=== PATIENT | male | born 1960 | race African-American/Black ===

== ENCOUNTER 2020-06-01 14:40 | Inpatient (IN) | payer OTHER ==
[~2020-06-01] VITALS: Ht 180.3 cm; Wt 66.2 kg
--- NOTE | 2020-06-01 14:49 | NUR ---
SOURAV GARRETT UNIT 44 FROM [facility], "VERBALLY ABUSIVE TO STAFF". TO ER BED 10, CHANGED TO HOSP GOWN, HOOKED TO BP CUFF AND MONITOR, PATIENT CALM AND COOPERATIVE. BREATHING EVEN AND UNLABORED. DR WHYTE AT BEDSIDE FOR NICKAL
[2020-06-01] MEDS ORDERED: IV NS 0.9% 1,000 ML BAG IV ONE (15:00)
--- NOTE | 2020-06-01 15:10 | NUR ---
PARKING METER INSTALLER AT BEDSIDE
[2020-06-01 15:23] LABS: BASOPHILS % (AUTO) 0.2 % (0.0-2.0); EOSINOPHILS % (AUTO) 0.3 % (0.0-6.0); HEMATOCRIT 40 % (39-51); HEMOGLOBIN 13.2 g/dL (13.5-17.5); LYMPHOCYTES # (AUTO) 1.1 /CMM (0.8-4.8); LYMPHOCYTES % (AUTO) 6.2 % (20.0-44.0); MEAN CORPUSCULAR HGB CONC 33 g/dl (31.0-36.0); MEAN CORPUSCULAR VOLUME 93 fL (80-96); MONOCYTES # (AUTO) 1.8 /CMM (0.1-1.30); MONOCYTES % (AUTO) 9.8 % (2.0-12.0); NEUTROPHILS # (AUTO) 15.1 /CMM (1.8-8.9); NEUTROPHILS % (AUTO) 83.5 % (43.0-81.0); PLATELET COUNT (AUTO) 248 /CMM (150-450); RED BLOOD CELL COUNT(AUTO) 4.28 MIL/uL (4.5-6.0); WHITE BLOOD COUNT (AUTO) 18.1 K/uL (4.3-11.0)
--- NOTE | 2020-06-01 15:29 | NUR ---
RAPID COVID AND COVID PCR SWAB DONE AND SENT TO LAB
[2020-06-01] MEDS ORDERED: ACET-868 PO (15:32)
[2020-06-01] MEDS ORDERED: MAGN400O6 PO (15:32)
[2020-06-01] MEDS ORDERED: CHOL100040 PO (15:32)
[2020-06-01] MEDS ORDERED: DEXA4TAB PO (15:32)
[2020-06-01] MEDS ORDERED: DOCU-141 PO (15:32)
[2020-06-01] MEDS ORDERED: ZINC1CAP2 PO (15:32)
[2020-06-01] MEDS ORDERED: ACET-2605 PO (15:32)
[2020-06-01] MEDS ORDERED: ASCO-352 PO (15:32)
[2020-06-01] MEDS ORDERED: POLY15DR40 EACHEYE (15:32)
[2020-06-01] MEDS ORDERED: SENN-261 PO (15:32)
[2020-06-01] MEDS ORDERED: MULT-447 PO (15:32)
[2020-06-01] MEDS ORDERED: ATOR10TA PO (15:32)
[2020-06-01] MEDS ORDERED: TAMS-12 PO (15:32)
[2020-06-01] MEDS ORDERED: PANT40TA2 PO (15:32)
[2020-06-01] MEDS ORDERED: LISI-603 PO (15:32)
[2020-06-01] MEDS ORDERED: POLY17PO4 PO (15:32)
[2020-06-01] MEDS ORDERED: OXYC5TAB3 PO (15:32)
[2020-06-01] MEDS ORDERED: TYL2T PO (15:32)
[2020-06-01] MEDS ORDERED: AMLO10TA7 PO (15:32)
[2020-06-01] MEDS ORDERED: DICL100G16 TP (15:32)
[2020-06-01 15:43] LABS: ALCOHOL, BLOOD < 3 mg/dL (0-0); CALCIUM, SERUM 9.1 mg/dL (8.5-10.1); CARBON DIOXIDE 26 mmol/L (21-32); CHLORIDE 99 mmol/L (98-107); CREATININE 0.4 mg/dL (0.6-1.3); GLUCOSE 102 mg/dL (74-106); POTASSIUM 4.3 mmol/L (3.5-5.1); SODIUM SERUM 132 mmol/L (136-145); UREA NITROGEN, BLOOD 21 mg/dL (7-18)
[2020-06-01 15:46] LABS: SALICYLATE < 0.2 mg/dL (2.8-20.0)
--- NOTE | 2020-06-01 16:40 | NUR ---
URINE SAMPLE COLLECTED VIA STRAIGHT CATHETER, URINE SAMPLE SENT TO LAB
--- NOTE | 2020-06-01 16:55 | NUR ---
NEGATIVE FOR COVID PER LAB
--- NOTE | 2020-06-01 16:55 | NUR ---
COVID RESULT: NEGATIVE
[2020-06-01 16:56] LABS: APPEARANCE,URINE Clear (CLEAR); BILIRUBIN,URINE Negative (NEGATIVE); BLOOD, URINE Negative Ery/uL (NEGATIVE); COLOR,URINE Yellow (YELLOW); KETONES,URINE Trace (NEGATIVE); LEUKOCYTE ESTERASE ,URINE Negative (NEGATIVE); NITRITE, URINE Negative (NEGATIVE); PH,URINE 5.5 (5.0-8.0); PROTEIN,URINE Negative (NEGATIVE); UGLUCOSE Negative (NEGATIVE); UROBILINOGEN,URINE 0.2 EU/dL (0.2)
[2020-06-01 17:05] LABS: BACTERIA,URINE Few /HPF (None Seen); RBC,URINE 0-2 /HPF (0-2); SQUAMOUS EPITHELIAL CELL,UR Few /HPF (None Seen); URINE AMORPHOUS URATE Few /HPF (None Seen); WBC,URINE 0-2 /HPF (0-3)
[2020-06-01 17:33] LABS: THYROID STIMULATING HORMONE 1.294 uIU/mL (0.358-3.74)
[2020-06-01] MEDS ORDERED: ONDANSETRON HCL/PF 4 MG/2 ML VIAL IV ONE (19:00)
[2020-06-01] MEDS ORDERED: MORPHINE SULFATE INJ 2 MG/ML DISP.SYRIN IV ONE ×2 (19:00→21:00)
[2020-06-01] MEDS ORDERED: IV NS 0.9% 500 ML BAG IV ONE (19:00)
[2020-06-01] MEDS ORDERED: IOHEXOL-300 100 ML VIAL IV ONE (19:16)
[2020-06-01] MEDS ORDERED: IV NS 0.9% 0 ML IV ONE (19:17)
[2020-06-01] MEDS ORDERED: CT SWABBABLE VALVE TRANS SET 1 EA INFUS.SET MC ONE (19:17)
--- NOTE | 2020-06-01 19:17 | NUR ---
covid swab collected and sent to lab.
[2020-06-01] MEDS ORDERED: IV NS 0.9% 250 ML IV ONE (19:18)
--- NOTE | 2020-06-01 19:32 | NUR ---
PICKED UP BY FINANCIAL DIRECTOR FOR CT SCAN
--- NOTE | 2020-06-01 19:42 | NUR ---
PATIENT RETURNED FROM CT.
[2020-06-01] MEDS ORDERED: ONDANSETRON HCL/PF 4 MG/2 ML VIAL ONE ×2 (20:13→21:27)
[2020-06-01] MEDS ORDERED: MORPHINE SULFATE INJ 4 MG/ML DISP.SYRIN ONE ×2 (20:13→21:27)
[2020-06-01] MEDS ORDERED: DEXAMETHASONE SOD PHOSPHATE 10 MG/ML VIAL IV ONE (21:00)
--- NOTE | 2020-06-01 21:08 | NUR ---
PATIENT TAKEN TO CT
--- NOTE | 2020-06-01 21:15 | NUR ---
BED ASSIGNMENT 201
[2020-06-01] MEDS ORDERED: DEXAMETHASONE SOD PHOSPHATE 10 MG/ML VIAL ONE (21:32)
--- NOTE | 2020-06-01 21:34 | NUR ---
DR. GARY LOAIZA PER DENIS BONE ORDER.
--- NOTE | 2020-06-01 21:57 | NUR ---
ER SPOKE TO DR. VEGA REGARDING PT ADMISSION.
--- NOTE | 2020-06-01 22:02 | NUR ---
REPORT CALLED TO CARTOON DESIGNERMARY HERRING. WILL TRANSPORT PT VIA ACLS PROTOCOL.
--- NOTE | 2020-06-01 22:22 | NUR ---
PATIENT BROUGHT TO ASSIGNED ROOM FOR JASON.
[2020-06-01] MEDS ORDERED: ONDANSETRON HCL/PF 4 MG/2 ML VIAL IVP PRN (23:00)
[2020-06-01] MEDS ORDERED: Z GUARD REMEDY 2 OZ OINT TP PRN (23:00)
[2020-06-01] MEDS ORDERED: MAGNESIUM HYDROXIDE 30 ML UDC PO PRN (23:00)
[2020-06-01] MEDS ORDERED: MAG HYDROX/AL HYDROX/SIMETH 30 ML UDC PO PRN (23:00)
[2020-06-01] MEDS ORDERED: ZOLPIDEM TARTRATE 5 MG TABLET PO PRN (23:00)
[2020-06-01] MEDS ORDERED: ACETAMINOPHEN 325 MG TABLET PO PRN (23:00)
[2020-06-01] MEDS: IV NS 0.9% 1,000 ML IV PRN (23:24)
[2020-06-02] MEDS ORDERED: MISCELLANEOUS MED 1 EA EA PO PRN
[2020-06-02] MEDS ORDERED: ACETAMINOPHEN 325 MG TABLET PO PRN ×3
[2020-06-02] MEDS ORDERED: MAGNESIUM HYDROXIDE 30 ML UDC PO PRN
[2020-06-02] MEDS: DEXAMETHASONE 4 MG TABLET PO SCH ×4 (01:07→17:07)
--- NOTE | 2020-06-02 01:15 | NUR ---
MS2/RN [facility]. PATIENT WAS AWAKE, ALERT, ORIENTED X4, CALM AND COMFORTABLE, NO C/O PAIN NO DISTRESS NOTED, VITAL SIGNS STABLE, AFEBRILE, ADMISSION DONE PER PROTOCOL, SKIN ASSESSMENT DONE, PHOTOS TAKEN, MADE COMFORTABLE IN BED, TAUGHT HOW TO USE THE CALL LIGHT AND PLACED IT AT BEDSIDE WITHIN REACH, PATIENT IS FALL RISK, FALL PRECAUTIONS PER PROTOCOL IMPLEMENT, WILL MONITOR.
[2020-06-02 01:43] VITALS: BP 121/72
[2020-06-02 06:48] LABS: BASOPHILS # (AUTO) 0.1 /CMM (0.0-0.2); BASOPHILS % (AUTO) 0.4 % (0.0-2.0); EOSINOPHILS % (AUTO) 0.1 % (0.0-6.0); HEMATOCRIT 39 % (39-51); HEMOGLOBIN 12.6 g/dL (13.5-17.5); LYMPHOCYTES # (AUTO) 0.5 /CMM (0.8-4.8); LYMPHOCYTES % (AUTO) 3.1 % (20.0-44.0); MEAN CORPUSCULAR HGB CONC 32 g/dl (31.0-36.0); MEAN CORPUSCULAR VOLUME 94 fL (80-96); MONOCYTES # (AUTO) 0.4 /CMM (0.1-1.30); MONOCYTES % (AUTO) 2.5 % (2.0-12.0); NEUTROPHILS # (AUTO) 15.4 /CMM (1.8-8.9); NEUTROPHILS % (AUTO) 93.9 % (43.0-81.0); PLATELET COUNT (AUTO) 233 /CMM (150-450); RED BLOOD CELL COUNT(AUTO) 4.19 MIL/uL (4.5-6.0); WHITE BLOOD COUNT (AUTO) 16.4 K/uL (4.3-11.0)
[2020-06-02] MEDS: HYDROCODONE/APAP 5/325MG TABLET PO PRN (06:53)
--- NOTE | 2020-06-02 07:03 | NUR ---
PHARMACY RESIDENT OPENING NOTE RECEIVED PT AWAKE IN BED AT THIS TIME. AOX4. PT ABLE TO VERBALIZE NEEDS. RESPIRATIONS ARE EVEN AND UNLABORED. NO SOB NOTED. NO C/O PAIN AT THIS TIME. NO S/S OF ANY ACUTE DISTRESS NOTED.IV ACCESS NOTED IN RAC G#18 , INTACT, PATENT, FLUSHING WELL. SAFETY PRECAUTION IN PLACE AND MAINTAINED AT ALL TIMES. BED IN LOWEST LOCKED POSITION, HOB ELEVATED, RAILS UP X 2, CALL LIGHT WITHIN REACH. WILL CONTINUE TO MONITOR
[2020-06-02] MEDS: PANTOPRAZOLE 40 MG TABLET.DR PO SCH (08:14)
[2020-06-02 08:30] VITALS: BP 148/85
[2020-06-02 08:38] LABS: CALCIUM, SERUM 9.1 mg/dL (8.5-10.1); CREATININE 0.4 mg/dL (0.6-1.3); MAGNESIUM 2.1 mg/dL (1.8-2.4); PHOSPHORUS 3.4 mg/dL (2.5-4.9); POTASSIUM 4.2 mmol/L (3.5-5.1)
[2020-06-02] MEDS: LISINOPRIL (20MG) 20 MG TABLET PO SCH (08:52)
[2020-06-02] MEDS: DOCUSATE SODIUM 100 MG CAPSULE PO SCH (08:52)
[2020-06-02] MEDS: ZINC SULFATE 220 MG CAPSULE PO SCH (08:52)
[2020-06-02] MEDS: TAMSULOSIN 0.4 MG CAP.SR.24H PO SCH (08:53)
[2020-06-02] MEDS: SENNOSIDES 8.6 MG TABLET PO SCH ×2 (08:53→17:00)
[2020-06-02] MEDS: POLYETHYLENE GLYCOL 3350 17 GM POWD.PACK PO SCH ×2 (08:53→17:00)
[2020-06-02] MEDS: AMLODIPINE BESYLATE 10 MG TABLET PO SCH (08:53)
--- NOTE | 2020-06-02 13:21 | NUR ---
PT VTE SCORE 4, RECEIVED ORDERS FROM DR VALENCIA FOR LOVENOX 40MG SQ DAILY. ORDERS READ BACK AND CARRIED OUT. WILL CONTINUE TO MONITOR
[2020-06-02] MEDS: IV NS 0.9% 1,000 ML IV PRN (13:26)
--- NOTE | 2020-06-02 14:50 | NUR ---
RECEIVED ORDERS FROM DR VALENCIA TO OBTAIN PT'S MEDICAL RECORDS FROM [facility] PER PATIENT'S REQUEST. ORDERS READ BACK. AUTHORIZATION TO RELEASE INFORMATION SIGNED BY PATIENT AND FAXED TO [facility] MEDICAL RECORDS AT THIS TIME. WILL CONTINUE WITH PLAN OF CARE
[2020-06-02] MEDS: ENOXAPARIN SODIUM 40 MG/0.4 ML DISP.SYRIN SQ SCH (14:51)
--- NOTE | 2020-06-02 15:30 | NUR ---
PT COVID -19 NEGATIVE. PT TRANSFERRED TO NON COVID UNIT ROOM 312-2 AT THIS TIME. PT TRANSPORTED BY WHEEL CHAIR WITH ALL PT'S BELONGINGS. WILL ENDORSE TO RECEIVING NURSE, MARY FIELD.
[2020-06-02 15:45] VITALS: BP 129/81
--- NOTE | 2020-06-02 15:45 | NUR ---
MS/RN NOTES Received patient via wheelchair accompanied by MARY Jacobson. Patient transferred to bed safely, A&O x 4. VS taken. Breathing even and non-labored on RA, no SOB noted. No respiratory or cardiac distress noted. Denies any pain and discomfort at the moment. IV access on R AC #18, patent and intact, and running 75 ml/hr of NS. No s/s of infiltration, infection, or bleeding on site. Sensation from all peripheral extremities intact. Bed locked to its lowest position, side rails x 2 up, bed alarm on, call light in reach. Instructed patient to use call light when in need of assistance. Will continue to monitor.
--- NOTE | 2020-06-02 16:11 | NUR ---
PT VTE SCORE OF 4, DVT PUMPS ORDERED. WILL F/U & CONTINUE TO MONITOR
--- NOTE | 2020-06-02 17:03 | NUR ---
MS/RN NOTE HELD DONOVAN, PATIENT HAD 2 BIG BOWEL MOVEMENTS TODAY. WILL CONTINUE TO MONITOR. Addendum: 06/02/20 at 1704 by RASHIDA ALLISON RN IN ADDITION TO ABOVE, PELON WAS HELD WELL.
--- NOTE | 2020-06-02 19:00 | NUR ---
MS/RN CLOSING NOTES Patient remains stable, resting in bed, A&O x 4. Denies any pain and discomfort throughout shift. Breathing even and non-labored on RA, no SOB noted. No respiratory or cardiac distress noted. IV access on R AC #18, patent and intact, and running 75 ml/hr of NS. No s/s of infiltration, infection, or bleeding on site. Sensation from all peripheral extremities intact. Fall precautions maintained. Will endorse to production shift supervisor nurse.
--- NOTE | 2020-06-02 19:35 | NUR ---
MS/RN OPENING NOTES RECEIVED PATIENT IN BED, RESTING COMFORTABLY, ABLE TO ACKNOWLEDGE NURSE, OBSERVED WATCHING TV AND ABLE TO USE URINAL, NO CONCERNS, NO GUARDING OR GRIMACE, RESPIRATIONS EVEN AND UNLABORED, ALERT, ORIENTED X4, REQUIRE ASSISTANCE FOR SAFETY IN TRANSFER PER PT WITH UNSTEADY GAIT, RIGHT AC PATENTM IV INFUSING AT 75 ML/HR, RECEIVED ENDORSEMENT FROM AM RN FOR JASON, TO F/U WITH RELEASE OF MEDICAL RECORD FROM [facility] BY , LABS IN AM , TO MONITOR ANY CHANGES, BED LOCKED, CALL LIGHTS WITHIN REACH, WILL MONITOR,SAFETY MEASURES FOLLOWED, INSTRUCT TO CALL FOR ASSISTANCE.
[2020-06-02 20:00] VITALS: BP 126/69
--- NOTE | 2020-06-02 20:30 | NUR ---
MS/RN NOTES PATIENT REPORTED WOULD LIKE TO GET SOME FOOD TO EAT AND OFFERED SOME SANDWICHES AND ABLE TO EAT WELL.
[2020-06-02] MEDS: ATORVASTATIN 10 MG TABLET PO SCH (21:08)
[2020-06-02] MEDS: MORPHINE SULFATE INJ 2 MG/ML DISP.SYRIN IV PRN (21:58)
--- NOTE | 2020-06-02 21:58 | NUR ---
MS/RN NOTES PATIENT REPORTED SEVERE PAIN DURING ROUNDS AND REQUESTED FOR PAIN MEDICATION NEEDED BACK PAIN, HEADACHE AND ALL OVER REPORTED, BLOOD PRESSURE CHECK SBP ABOVE 114.
[2020-06-03] MEDS: DEXAMETHASONE 4 MG TABLET PO SCH ×5 (00:03→23:55)
[2020-06-03] MEDS: IV NS 0.9% 1,000 ML IV PRN (04:31)
[2020-06-03] MEDS: HYDROCODONE/APAP 5/325MG TABLET PO PRN ×3 (05:34→17:41)
--- NOTE | 2020-06-03 05:39 | NUR ---
MS/RN NOTES PATIENT REQUESTED FOR SOME SNACKS TO EAT, PROVIDED AND REQUESTED FOR PAIN MEDICATION FOR MODERATE PAIN NORCO REQUESTED ON THE BACK. MONITORED FOR ANY CHANGES, IV FLUID INFUSING AT 75 ML/HR.
--- NOTE | 2020-06-03 06:19 | NUR ---
312-2 MS/RN NOTES PATIENT ABLE TO SLEEP DURING THE NIGHT. ATTENDED ALL NEEDS, ASSISTED AND ABLE TO DO SOME SELF CARE. IV HYDRATION ON RIGHT AC PATENT, TOLERATED FLUIDS WELL, ABLE TO EAT SNACKS. BED LOCKEDM CALL LIGHTS WITHIN EACH, WILL ENDORSE TO AM RN FOR JASON. PAIN MANAGED AND MONITORED.
[2020-06-03 06:57] LABS: BASOPHILS % (AUTO) 0.2 % (0.0-2.0); EOSINOPHILS % (AUTO) 0.1 % (0.0-6.0); HEMATOCRIT 38 % (39-51); HEMOGLOBIN 12.4 g/dL (13.5-17.5); LYMPHOCYTES # (AUTO) 0.4 /CMM (0.8-4.8); LYMPHOCYTES % (AUTO) 2.8 % (20.0-44.0); MEAN CORPUSCULAR HGB CONC 33 g/dl (31.0-36.0); MEAN CORPUSCULAR VOLUME 93 fL (80-96); MONOCYTES # (AUTO) 0.6 /CMM (0.1-1.30); MONOCYTES % (AUTO) 3.8 % (2.0-12.0); NEUTROPHILS # (AUTO) 14.3 /CMM (1.8-8.9); NEUTROPHILS % (AUTO) 93.1 % (43.0-81.0); PLATELET COUNT (AUTO) 216 /CMM (150-450); RED BLOOD CELL COUNT(AUTO) 4.09 MIL/uL (4.5-6.0); WHITE BLOOD COUNT (AUTO) 15.3 K/uL (4.3-11.0)
[2020-06-03 07:12] LABS: CALCIUM, SERUM 9.1 mg/dL (8.5-10.1); CREATININE 0.5 mg/dL (0.6-1.3); PHOSPHORUS 3.1 mg/dL (2.5-4.9)
[2020-06-03 07:35] LABS: IRON, SERUM 86 ug/dl (50-175); TOTAL IRON BINDING CAPACITY 338 ug/dl (250-450)
--- NOTE | 2020-06-03 07:38 | NUR ---
MS/RN Opening note Patient received from manufacturing supervisor 2nd shift. A/O X3-4, calm and cooperative, vital signs within normal range, no fevers or other signs of infection noted. IV fluids infusing at 75ml/hr via right AC, no signs of infection seen. Call light within reach, bed in low setting, siderails X3 in upright position. Will continue to monitor and ensure safety.
[2020-06-03 07:39] LABS: FERRITIN 131 ng/mL (8-388)
[2020-06-03 07:53] VITALS: BP 143/72
[2020-06-03 07:59] VITALS: BP 143/72
[2020-06-03] MEDS: DOCUSATE SODIUM 100 MG CAPSULE PO SCH (08:35)
[2020-06-03] MEDS: ZINC SULFATE 220 MG CAPSULE PO SCH (08:35)
[2020-06-03] MEDS: SENNOSIDES 8.6 MG TABLET PO SCH ×2 (08:35→17:36)
[2020-06-03] MEDS: PANTOPRAZOLE 40 MG TABLET.DR PO SCH (08:36)
[2020-06-03] MEDS: AMLODIPINE BESYLATE 10 MG TABLET PO SCH (08:36)
[2020-06-03] MEDS: POLYETHYLENE GLYCOL 3350 17 GM POWD.PACK PO SCH ×2 (08:36→17:36)
[2020-06-03] MEDS: TAMSULOSIN 0.4 MG CAP.SR.24H PO SCH (08:36)
[2020-06-03] MEDS: LISINOPRIL (20MG) 20 MG TABLET PO SCH (08:36)
--- NOTE | 2020-06-03 10:30 | NUR ---
MS/RN Pain Complaining of generalized pain scale 10/10. [place] 5/325mg administered, will monitor effectiveness.
--- NOTE | 2020-06-03 11:30 | NUR ---
MS/RN S/B Dr Farley Seen by Dr Farley - await PT evaluation and records from [facility].
[2020-06-03 16:00] VITALS: BP 132/77
[2020-06-03 16:05] VITALS: BP 132/77
--- NOTE | 2020-06-03 17:15 | NUR ---
MS/RN Pain Complaining of generalized pain, pain scal 8/10. One norco administered, will monitor effectiveness.
--- NOTE | 2020-06-03 18:30 | NUR ---
MS/RN End note Patient remains in stable condition. Requesting to speak with bilingual patient support caseworker tomorrow regarding finding different group home upon discharge, unwilling to return to [facility]. All needs attended, questions and concerns addressed, will endorse to nightshift.
--- NOTE | 2020-06-03 19:15 | NUR ---
MS/RN OPENING NOTES: PATIENT IN BED, RESTING COMFORTABLY, OBSERVED WATCHING TV AND ABLE TO USE URINAL, NO CONCERNS, NO GUARDING OR GRIMACE, RESPIRATIONS EVEN AND UNLABORED, ALERT, ORIENTED X4, REQUIRE ASSISTANCE FOR SAFETY IN TRANSFER PER PT WITH UNSTEADY GAIT, RIGHT AC PATENT M IV INFUSING AT 75 ML/HR, WILL F/U WITH RELEASE OF MEDICAL RECORD FROM [facility] BY , LABS IN AM , TO MONITOR ANY CHANGES, BED LOCKED, CALL LIGHTS WITHIN REACH, WILL MONITOR, SAFETY MEASURES FOLLOWED, WILL CONTINUE TO MONITOR ACCORDINGLY.
[2020-06-03 20:24] VITALS: BP 127/84
[2020-06-03] MEDS: ENOXAPARIN SODIUM 40 MG/0.4 ML DISP.SYRIN SQ SCH (21:18)
[2020-06-03] MEDS: ATORVASTATIN 10 MG TABLET PO SCH (21:18)
[2020-06-04] MEDS: HYDROCODONE/APAP 5/325MG TABLET PO PRN ×3 (02:57→23:03)
[2020-06-04] MEDS: IV NS 0.9% 1,000 ML IV PRN (03:03)
[2020-06-04] MEDS: DEXAMETHASONE 4 MG TABLET PO SCH ×4 (06:37→23:02)
[2020-06-04 07:13] LABS: BASOPHILS % (AUTO) 0.3 % (0.0-2.0); EOSINOPHILS % (AUTO) 0.3 % (0.0-6.0); HEMATOCRIT 38 % (39-51); HEMOGLOBIN 12.3 g/dL (13.5-17.5); LYMPHOCYTES # (AUTO) 0.5 /CMM (0.8-4.8); LYMPHOCYTES % (AUTO) 3.1 % (20.0-44.0); MEAN CORPUSCULAR HGB CONC 33 g/dl (31.0-36.0); MEAN CORPUSCULAR VOLUME 93 fL (80-96); MONOCYTES # (AUTO) 0.8 /CMM (0.1-1.30); MONOCYTES % (AUTO) 5.2 % (2.0-12.0); NEUTROPHILS # (AUTO) 14.2 /CMM (1.8-8.9); NEUTROPHILS % (AUTO) 91.1 % (43.0-81.0); PLATELET COUNT (AUTO) 200 /CMM (150-450); RED BLOOD CELL COUNT(AUTO) 4.06 MIL/uL (4.5-6.0); WHITE BLOOD COUNT (AUTO) 15.6 K/uL (4.3-11.0)
--- NOTE | 2020-06-04 07:28 | NUR ---
MS/RN NOTES: PATIENT REMAINS STABLE NIGHT. ATTENDED ALL NEEDS. TO BE DISCHARGED IN AM. SAFETY MEASURES IN PLACE. CALL LIGHTS WITHIN EACH, WILL ENDORSE TO AM RN FOR JASON.
--- NOTE | 2020-06-04 07:30 | NUR ---
RN OPENING NOTES RECEIVED PATIENT IN BED, RESTING COMFORTABLY, OBSERVED WATCHING TV. ALERT, ORIENTED X4, NO CARDIAC OR RESPIRATORY DISTRESS NOTED. NO SOB NOTED. SATURATING WELL ON ROOM AIR. IV ACCESS NOTED ON RIGHT AC PATENT AND INTACT AND FLUSHING WELL. WITH NS RUNNING AT 75 ML/HR, WSAFETY PRECAUTIONS IN PLACE. BED LOCKED AND LOW POSITION. SIDE RAILS UP X2. BED ALARM ON. CALL LIGHTS WITHIN REACH, WILL CONTINUE TO MONITOR ACCORDINGLY.
[2020-06-04 08:00] VITALS: BP 167/84
[2020-06-04] MEDS: POLYETHYLENE GLYCOL 3350 17 GM POWD.PACK PO SCH ×2 (08:32→16:06)
[2020-06-04] MEDS: DOCUSATE SODIUM 100 MG CAPSULE PO SCH (08:32)
[2020-06-04] MEDS: ZINC SULFATE 220 MG CAPSULE PO SCH (08:32)
[2020-06-04] MEDS: TAMSULOSIN 0.4 MG CAP.SR.24H PO SCH (08:32)
[2020-06-04] MEDS: AMLODIPINE BESYLATE 10 MG TABLET PO SCH (08:33)
[2020-06-04] MEDS: PANTOPRAZOLE 40 MG TABLET.DR PO SCH (08:34)
[2020-06-04] MEDS: LISINOPRIL (20MG) 20 MG TABLET PO SCH (08:34)
[2020-06-04] MEDS: SENNOSIDES 8.6 MG TABLET PO SCH ×2 (08:34→16:06)
[2020-06-04 08:35] LABS: CREATININE 0.4 mg/dL (0.6-1.3); POTASSIUM 3.8 mmol/L (3.5-5.1)
[2020-06-04] MEDS: MORPHINE SULFATE INJ 2 MG/ML DISP.SYRIN IV PRN ×2 (08:41→13:53)
[2020-06-04 08:44] LABS: LYMPHOCYTES % (MANUAL) 3 % (16-48); NEUTROPHILS % (MANUAL) 93 (42-76)
[2020-06-04 08:45] LABS: MONOCYTES % (MANUAL) 4 % (0-11.0)
--- NOTE | 2020-06-04 08:49 | NUR ---
WOUND CARE CONSULT: PT PRESENTS WITH DISCOLORATION AND DRY SKIN TO LOWER LEGS AND FEET, PRESENT ON ADMISSION. PT IS CONTINENT AND INDEPENDENT WITH BED MOBILITY. WILL SEE PRN. RECOMMENDATIONS MADE FOR MOISTURIZER. DISCUSSED WITH NURSING STAFF.
[2020-06-04] MEDS: MINERAL OIL/PETROLATUM,WHITE 120 GM JAR TP SCH (09:48)
--- NOTE | 2020-06-04 14:00 | NUR ---
BEHAVIOR PT IS VERY EASILY IRRITABLE. AND VERY IMPATIENT. HE WOULD CALL THE EXPLORATION GEOLOGIST AND WOULD ASK FOR THE NURSE. NURSE TANGIBLE PERSONAL PROPERTY APPRAISER AND RN WENT INTO THE ROOM 2MIN LATER, AND THEN HE CLAIMS THAT HE HAS BEEN CALLING FOR 45MINUTES. PT NOTED TO BE FABRICATING STORIES. HE ALSO IS FRANCO RUDE TO THE NURSING STAFF, WHENEVER HE WOULD ASK FOR WATER OR ICE OR CERTAIN THINGS HE TENDS TO BE VERY DEMANDING.
[2020-06-04 16:00] VITALS: BP 146/92
--- NOTE | 2020-06-04 19:03 | NUR ---
RN CLOSING NOTES PATIENT IN BED, RESTING COMFORTABLY, OBSERVED WATCHING TV. ALERT, ORIENTED X4, NO CARDIAC OR RESPIRATORY DISTRESS NOTED. NO SOB NOTED. SATURATING WELL ON ROOM AIR. IV ACCESS NOTED ON RIGHT AC PATENT AND INTACT AND FLUSHING WELL. WITH NS RUNNING AT 75 ML/HR. ALL NEEDS MET AND ATTENDED. ALL DUE MEDS GIVEN. NO ASE NOTED. SAFETY PRECAUTIONS IN PLACE. BED LOCKED AND LOW POSITION. SIDE RAILS UP X2. BED ALARM ON. CALL LIGHTS WITHIN REACH, WILL CONTINUE TO MONITOR ACCORDINGLY.
--- NOTE | 2020-06-04 19:15 | NUR ---
RN medsurg opening notes Received Pt from morning nurse. Pt is sitting in bed comfortably watching TV. Pt is alert and orientedX4. Respiration is normal in room air. No SOB. No S/S of distress noted. IV sites at RAC# 18 is clean, intact and infusing well NS@ 75ml/hr. Safety precautions is maintained. Bed at low position, brakes locked, side railsupX3 and call light is within reach. Will continue to monitor.
[2020-06-04 20:00] VITALS: BP 140/79
[2020-06-04] MEDS: ATORVASTATIN 10 MG TABLET PO SCH (21:43)
[2020-06-04] MEDS: ENOXAPARIN SODIUM 40 MG/0.4 ML DISP.SYRIN SQ SCH (21:45)
--- NOTE | 2020-06-04 22:50 | NUR ---
RN medsurg notes Dr. Jules called and asked for Pt's med recon from [facility]. asked to send pt's pathology, MRI and CT scan. Send documents to Dr. Jules. Charge nurse is aware and informed. Will continue to monitor.
--- NOTE | 2020-06-04 23:03 | NUR ---
MARY gutierrez notes Pt is complaining of generalized pain and requesting norco 5. Administered norco5/1 tab/po as ordered for pain per pt' request. Safety precautions is maintained. Will continue to monitor.
[2020-06-05] MEDS: DEXAMETHASONE 4 MG TABLET PO SCH ×2 (05:10→12:48)
[2020-06-05] MEDS: IV NS 0.9% 1,000 ML IV PRN (05:18)
[2020-06-05 06:58] LABS: BASOPHILS % (AUTO) 0.2 % (0.0-2.0); EOSINOPHILS % (AUTO) 0.1 % (0.0-6.0); HEMATOCRIT 39 % (39-51); HEMOGLOBIN 12.6 g/dL (13.5-17.5); LYMPHOCYTES # (AUTO) 0.6 /CMM (0.8-4.8); LYMPHOCYTES % (AUTO) 3.7 % (20.0-44.0); MEAN CORPUSCULAR HGB CONC 33 g/dl (31.0-36.0); MEAN CORPUSCULAR VOLUME 93 fL (80-96); MONOCYTES # (AUTO) 1.1 /CMM (0.1-1.30); MONOCYTES % (AUTO) 6.7 % (2.0-12.0); NEUTROPHILS # (AUTO) 13.9 /CMM (1.8-8.9); NEUTROPHILS % (AUTO) 89.3 % (43.0-81.0); PLATELET COUNT (AUTO) 174 /CMM (150-450); RED BLOOD CELL COUNT(AUTO) 4.15 MIL/uL (4.5-6.0); WHITE BLOOD COUNT (AUTO) 15.6 K/uL (4.3-11.0)
--- NOTE | 2020-06-05 07:00 | NUR ---
MARY gutierrez closing notes Pt is resting in bed comfortably watching TV. Pt is alert and orientedX4. Respiration is normal in room air. No SOB. No S/S of distress noted. VS is stable. Afebrile. IV sites at RAC# 18 is clean, intact and infusing well NS@ 75ml/hr. Kept Pt clean, dry and comfortable. All needs met and attended. Safety precautions is maintained. Bed at low position, brakes locked, side railsupX3 and call light is within reach. Will continue to monitor. Addendum: 06/05/20 at 0842 by ALMITA MULLINS RN Will endorse to am nurse keenan GOMEZ
[2020-06-05 07:03] LABS: CALCIUM, SERUM 8.9 mg/dL (8.5-10.1); CREATININE 0.3 mg/dL (0.6-1.3); MAGNESIUM 1.9 mg/dL (1.8-2.4); POTASSIUM 4.1 mmol/L (3.5-5.1)
--- NOTE | 2020-06-05 07:39 | NUR ---
MS/RN OPENING NOTES RECEIVED PATIENT ON BED AWAKE, ALERT AND ORIENTED X4. PATIENT IN NO APPARENT RESPIRATORY DISTRESS NOTED. DENIES PAIN AT THIS TIME. WILL CONTINUE TO MONITOR.
[2020-06-05 08:00] VITALS: BP 133/66
[2020-06-05] MEDS: PANTOPRAZOLE 40 MG TABLET.DR PO SCH (08:01)
[2020-06-05] MEDS: ZINC SULFATE 220 MG CAPSULE PO SCH (08:27)
[2020-06-05 08:28] VITALS: BP 133/66
[2020-06-05] MEDS: DOCUSATE SODIUM 100 MG CAPSULE PO SCH (08:28)
[2020-06-05] MEDS: LISINOPRIL (20MG) 20 MG TABLET PO SCH (08:28)
[2020-06-05] MEDS: POLYETHYLENE GLYCOL 3350 17 GM POWD.PACK PO SCH ×2 (08:28→16:35)
[2020-06-05] MEDS: AMLODIPINE BESYLATE 10 MG TABLET PO SCH (08:28)
[2020-06-05] MEDS: SENNOSIDES 8.6 MG TABLET PO SCH ×2 (08:28→16:35)
[2020-06-05] MEDS: TAMSULOSIN 0.4 MG CAP.SR.24H PO SCH (08:28)
[2020-06-05] MEDS: HYDROCODONE/APAP 5/325MG TABLET PO PRN ×2 (08:37→16:35)
[2020-06-05] MEDS: MINERAL OIL/PETROLATUM,WHITE 120 GM JAR TP SCH (08:48)
--- NOTE | 2020-06-05 17:04 | NUR ---
MS/RN NOTES PATIENT IS ALERT AND ORIENTED X4. IN ROOM AIR AND SATURATION IS AT 100%. RESPIRATION REGULAR AND UNLABORED. PATIENT DENIES PAIN AT THIS TIME. PATIENT IN NO APPARENT RESPIRATORY DISTRESS NOTED. SEEN AND EXAMINED BY MD WITH ORDERS MADE AND CARRIED OUT. PATIENT WAS GIVEN DISCHARGED INSTRUCTIONS AND PATIENT VERBALIZED UNDERSTANDING. THE PATIENT LEFT IN THE HOSPITAL IN MEDICALLY STABLE CONDITION AT 1705. LINER INSTALLER 2 EMT VIA AMBULANCE.
== END 2020-06-05 17:00 | DRG 136 ==
LOC: ER 14:48 → TELE2 21:22 → MEDSG2 06-02 04:10 → MED 06-02 15:25
PROVIDERS: ADMIT Internal Medicine
DX: C34.11 Malignant neoplasm of upper lobe, right bronchus or lung (principal); C79.31 Secondary malignant neoplasm of brain; C79.51 Secondary malignant neoplasm of bone; C79.70 Secondary malignant neoplasm of unspecified adrenal gland; N40.0 Benign prostatic hyperplasia without lower urinary tract symptoms; G82.20 Paraplegia, unspecified; F23 Brief psychotic disorder; F41.9 Anxiety disorder, unspecified; F32.9 Major depressive disorder, single episode, unspecified; E78.5 Hyperlipidemia, unspecified; I10 Essential (primary) hypertension; J44.9 Chronic obstructive pulmonary disease, unspecified; T38.0X5A Adverse effect of glucocorticoids and synthetic analogues, initial encounter; Y92.89 Other specified places as the place of occurrence of the external cause; D72.829 Elevated white blood cell count, unspecified; D64.9 Anemia, unspecified
CPT/HCPCS: 36415; 70450-TC; 71045-TC; 71260-TC; 80048-TC; 80305; 81000-TC; 82728-TC; 82962-TC; 83540-TC; 83735-TC; 84100-TC; 84439-TC; 84443-TC; 84484-TC; 85025-TC; 87081-TC; 97116-TC; 97530-TC; C9803-CS; G0378; G0480; J1100; J1650; J2270; J2405; J7030; J7040; J7050; J8540; Q9967; U0003-CS